=== PATIENT | male | born 1970 | race Caucasian/White ===

== ENCOUNTER 2023-07-04 15:09 | Emergency (ER) | payer SELFPAY ==
[2023-07-04 15:11] VITALS: BP 174/85; PULSE 75; RESP 16; TEMP 35.6; BMI 36.6
[2023-07-04 15:13] VITALS: BP 174/85; PULSE 75; RESP 16; TEMP 35.6
--- NOTE | 2023-07-04 15:48 | EX.ED.DYSGE1 ---
HPI History of Present Illness Chief Complaint: Lower Extremity Injury Informant: patient Narrative Narrative: Patient here with mild complaints. Reports swelling pelvic area for a while. He had right inguinal hernia repair 18 months ago outside facility. No urinary issues no bowel issues. Reports also chronic right hip pain. He seen Dr. Sj Yoon this past September reported recommend hip replacement however needed his glucose controlled. He is a diabetic. He does have a PCP however he states also trying to treat verbally. Has not seen recently his PCP. No vomiting. No polyuria or polydipsia. Denies any scrotal pain. [facility] Medical History Type 2 diabetes mellitus Home Medications etodolac 300 mg capsule 300 mg PO TIDCM ##30 06/06/14 [Rx Last Taken Unknown] glipizide 10 mg tablet, extended release 24 hr mg PO 07/04/23 [History Last Taken Unknown] pioglitazone 30 mg tablet mg 07/04/23 [History Last Taken Unknown] Allergy/AdvReac Type Severity Reaction Status Date / Time venom-honey bee AdvReac Swelling Verified 07/04/23 15:10 [bee venom (honey bee)] Social History Smoking Status: Unknown if ever smoked [facility] ED Constitutional Constitutional ED: Denies chills, fever(s) or sweats Eyes Eyes: Denies change in vision ENT ENT ED: Denies dysphagia or sore throat Cardiovascular Cardiovascular: Denies chest pain, leg edema, palpitations or racing heartbeat Respiratory/Chest Respiratory/Chest: Denies cough, dyspnea or dyspnea on exertion Gastrointestinal Gastrointestinal: Denies abdominal pain, diarrhea, nausea or vomiting Genitourinary Genitourinary ED: Denies dysuria, hematuria or urinary frequency Musculoskeletal Musculoskeletal: Reports other Details: Right hip pain ; Denies back pain, extremity pain or neck pain Integumentary Denies rash or wounds Neurologic Neurologic: Denies headache(s), paresthesias or weakness EXAM Physical Exam Const Vital Signs: 07/04/23 15:11 07/04/23 15:13 Temperature 96.1 F L 96.1 F L Temperature Source Temporal Temporal Pulse Rate 75 75 Respiratory Rate 16 16 Blood Pressure 174/85 H 174/85 H Blood Pressure Mean 114 114 Positive well nourished and well developed General Appearance ED: well developed and NAD HEENT Reports moist mucous membranes normocephalic and atraumatic Eyes PERRL, EOMs intact bilaterally and conjunctivae normal General Eye ED: Yes normal appearance of both eyes Neck no lymphadenopathy and supple General: Negative for tenderness Chest Wall Chest: Negative for tenderness Resp normal respiratory effort and normal air movement Effort and Inspection: symmetric chest movement; Negative for respiratory distress Cardio regular rate, regular rhythm and no murmurs Peripheral Pulses: pulses 2+ throughout GI normal to inspection, nondistended, normoactive bowel sounds and non-tender Palpation: Negative for guarding or rebound tenderness present Narrative: Increasing soft tissue structure of the pelvic region. There is no scrotal swelling. No inguinal hernia palpated. No scrotal tenderness. Back/Spine no CVA tenderness and no thoracic nor lumbar tenderness Extremity normal to inspection Extremity Narrative: Negative logroll of the lower extremities. No pain with hip flexion. No deformities. Neuro vas intact distally. General Extremety ED: Negative for edema or tenderness General Extremity: Negative for edema Neuro oriented x3 and no sensory deficits noted Sensorium / Orientation: awake and alert Skin no rashes or lesions noted and no wounds MDM MDM MDM Narrative Medical decision making narrative: Interventions / MDM: Differential diagnosis: Right hip arthritis, history of diabetes Diagnosis considered but do not suspect: No clinical hernia. My EKG interpretation: N/A Imaging independently reviewed and interpreted by myself: 3 view right hip and pelvis: Severe right hip arthrosis, no fracture. Also read by radiology. External documents reviewed: N/A Test considered but not ordered:N/A ED course: Nontoxic chronic history of right hip pain. No hernia palpated on exam. Discussion he wanted reevaluation today for his reason. Hip x-rays obtained for reevaluation. X-rays severe hip arthrosis on the right. Discussed with patient reported history from his orthopedic visit in September reporting needs good glucose control prior to surgery that was recommended. He states he has been trying herbal medications without success. Discussed need for close follow-up with his PCP to help with this and follow-up with his orthopedic afterwards for recommended surgery. He is able to ambulate. Discussed using Tylenol as needed for pain. All questions were answered. Re-evaluation: stable Disposition discussed with patient/family/significant other: Patient Case discussed with consulting clinician: N/A This note was generated with Dragon dictation software. It may contain incorrect words, spelling, and punctuation that were not noted in checking the note before signing. Radiography Diagnostic Testing: Clinical Impression(s) from Imaging Studies Hip/Pelvis X-Ray 07/04/23 15:50 IMPRESSION: No evidence of displaced pelvic or hip fracture. Severe right hip arthrosis. Electronically Signed: David Staples MD at 16:05 EDT Reading Location ID and State: [address] [place] [address] Tel , Service support , Discharge Plan Triage Chief Complaint: Lower Extremity Injury ED Provider: Esau Snell Dx/Rx/DC Orders Clinical Impression: Arthritis of right hip, History of diabetes mellitus Instructions: OA Hip Prescriptions: No Action etodolac 300 MG capsule 300 mg PO TIDCM Qty: 30 0RF Rx Instructions: with food glipizide 10 mg tablet extended release 24hr PO Patient Comments: TAKE 1 TABLET BY MOUTH ONCE DAILY IN THE EVENING pioglitazone 30 mg tablet Patient Comments: TAKE 1 TABLET BY MOUTH ONCE DAILY Primary Care Provider: Antonio Garcia Referrals: Sj Yoon MD [Med Staff - Active Staff] - 1-2 Weeks Antonio Garcia MD [Primary Care Provider] - 3-5 Days Activity Restrictions/Additional Instructions: Repeat x-ray today right hip severe arthrosis noted. Follow-up with your PCP discuss your blood glucose management as discussed with your orthopedist for control prior to recommended hip replacement surgery. Disposition Disposition: Home, Self Care Discharge Date/Time: 07/04/23 17:03
--- NOTE | 2023-07-04 15:50 | RAD_ITS ---
INDICATION: pain EXAMINATION/TECHNIQUE: X-RAY - XR Hip Unilateral with Pelvis when performed; 2-3 Views COMPARISON: No relevant prior comparison study available FINDINGS: PELVIC BONES: No displaced fracture, destructive or sclerotic lesions. Note that overlapping bowel shadows may however obscure fine detail. Sacroiliac joints are unremarkable. No widening of the pubic symphysis. 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 Small marginal osteophytes of the left hip joint with preservation of the hip joint space. No displaced fracture seen in this frontal view. SOFT TISSUES: No soft tissue swelling or gas. RAD/HIP, UNI W/ Pelvis 2-3 Views IMPRESSION: No evidence of displaced pelvic or hip fracture. Severe right hip arthrosis. Electronically Signed: David Staples MD at 16:05 EDT ,
== END 2023-07-04 17:03 | disposition home or self-care (01) ==
PROVIDERS: Emergency Provider Emergency Medicine; PCP Family Medicine; Visit Provider Emergency Medicine
DX: M16.11 Unilateral primary osteoarthritis, right hip (principal); E11.9 Type 2 diabetes mellitus without complications; G89.29 Other chronic pain; M25.551 Pain in right hip
CPT/HCPCS: 73502; 99283

== ENCOUNTER → 2023-07-25 | Outpatient (CLI) | payer SELFPAY ==
[2023-07-25 13:49] LABS: Hemoglobin A1c 10.6 % (3.8-5.6)
[2023-07-26 05:07] LABS: Fructosamine 418 umol/L (0-285)
== END | disposition home or self-care (01) ==
LOC: MTLAB 09:44
PROVIDERS: PCP Family Medicine; Referring Provider Orthopaedic Surgery; Visit Provider Orthopaedic Surgery
DX: E11.9 Type 2 diabetes mellitus without complications (principal)
CPT/HCPCS: 36415; 82985; 83036

== ENCOUNTER → 2024-05-29 | Outpatient (CLI) | payer MEDICAID, SELFPAY ==
--- NOTE | 2024-05-29 09:47 | CT_ITS ---
HISTORY: templating for right DARRYN. TECHNIQUE: Helically acquired images were obtained of the knees without contrast. 2-D reformats were performed by the technologist. A radiation dose optimization technique was used for this scan. 1160 images. COMPARISON: XI 07/04/2023. FINDINGS: BONES: No acute fracture identified. JOINT SPACES: Severe right hip joint space narrowing with subchondral cysts, osteophytes, and coxa magna. No dislocation. Mild degenerative changes of the left hepatic veins. SOFT TISSUES: No fluid collections. CT/Extremity Lower without Contra IMPRESSION: CT for right DARRYN templating. Electronically Signed: Felicitas Rocha MD at 10:24 EDT ,
== END | disposition home or self-care (01) ==
LOC: CT 09:46
PROVIDERS: PCP Family Medicine; Referring Provider Orthopaedic Surgery; Visit Provider Orthopaedic Surgery
DX: M16.11 Unilateral primary osteoarthritis, right hip (principal)
CPT/HCPCS: 73700

== ENCOUNTER 2024-06-08 13:00 | Outpatient (CLI) | payer MEDICAID, SELFPAY ==
--- NOTE | 2024-05-31 07:53 | EKG12_ITS ---
Test Reason : PRE OP Blood Pressure : / mmHG Vent. Rate : 062 BPM Atrial Rate : 062 BPM P-R Int : 162 ms QRS Dur : 086 ms QT Int : 392 ms P-R-T Axes : 037 059 057 degrees QTc Int : 397 ms Normal sinus rhythm Normal ECG Confirmed by MATT ARAUJO, LENNIE ([id number]), scientific editor USHA FAY ([id number]) on 05/31/2024 12:48:55 PM Referred By: Tom Dodson Confirmed By:LENNIE GUTIERREZ MD
[2024-05-31 08:44] LABS: Absolute Lymphocyte Count 1.81 X10^3/uL (0.83-4.51); Absolute Neutrophil Count 4.2 X10^3/uL (2.0-7.7); Basophil# 0.03 X10^3/uL; Basophil% 0.5 % (0-1); Eosinophil# 0.06 X10^3/uL; Eosinophils% 0.9 % (0-5); Hematocrit 40.3 % (40-54); Hemoglobin 13.5 g/dL (13.0-16.5); Lymphocyte # 1.81 X10^3/ul (0.83-4.51); Lymphocyte % 27.9 % (19-41); Mean Corp Hgb Conc 33.5 g/dL (32-36); Mean Corpuscular Hgb 30.3 pg (27.0-32.0); Mean Corpuscular Volume 90.6 fL (80-94); Mean Platelet Vol. 10.3 fl (6.2-12.0); Monocyte# 0.38 X10^3/uL; Monocyte% 5.9 % (0-10); NRBC Flagged by Analyzer 0 % (0-5); Neutrophil # 4.17 X10^3/uL (2.7-7.7); Neutrophil % 64.2 % (47-70); Platelet Count 256 K/mm3 (150-450); RBC Distribution Width CV 12.7 % (11.6-14.6); RBC Distribution Width SD 42.1 fl (35.1-43.9); Red Blood Count 4.45 M/mm3 (4.6-6.2); White Blood Count 6.5 K/mm3 (4.4-11.0)
[2024-05-31 08:53] LABS: International Normalized Ratio 1.2; Prothrombin Time (Protime)PT. 15.2 SECONDS (11.7-14.9)
[2024-05-31 08:55] LABS: Partial Thromboplast Time 26.7 Seconds (24.1-36.2)
[2024-05-31 09:07] LABS: Anion Gap 6 (5-15); BUN 16 mg/dL (7-18); Calcium,Total 9.5 mg/dL (8.5-10.1); Chloride 103 mmol/L (98-107); Creatinine, Serum 0.84 mg/dL (0.70-1.30); EST Glomerular Filtration Rate 101 mL/min (>60); Est Glom Filt Rate - Afr Amer 122 mL/min (>60); Glucose 263 mg/dL (74-106); Potassium 4.2 mmol/L (3.5-5.1); Sodium Level 137 mmol/L (136-145)
[2024-05-31 09:14] LABS: Hemoglobin A1c 7.1 % (3.8-5.6)
[2024-06-01 04:07] LABS: Fructosamine 326 umol/L (0-285)
[2024-06-08 06:00] VITALS: BP 162/79; PULSE 76; RESP 18; TEMP 36.2; O2SAT 98; BMI 36.8
[2024-06-08] MEDS: Magnesium 1 GM over 15 mins IV (06:00)
[2024-06-08] MEDS: Lactated Ringers 1,000 ML 999 ML IV (06:00)
[2024-06-08] MEDS: Insulin Lispro 100 UNIT/ML INSULN.PEN SC (06:17)
[2024-06-08] MEDS: Scopolamine 1mg/72hr Patch 1 PATCH TD (06:18)
[2024-06-08] MEDS: Acetaminophen 500 MG Tablet 1000 MG PO (06:20)
[2024-06-08] MEDS: Celecoxib 200 MG Capsule 400 MG PO (06:20)
[2024-06-08] MEDS: Gabapentin 600 MG Tablet PO (06:20)
[2024-06-08 07:29] LABS: Bedside Glucose 319 mg/dL (74-106)
== END 2024-06-08 23:00 | disposition home or self-care (01) ==
LOC: SDC 11-24 21:49
PROVIDERS: Anesthesiology; PCP Family Medicine; Referring Provider Orthopaedic Surgery; Visit Provider Orthopaedic Surgery
PROC: 8E0Y0CZ Robotic Assisted Procedure of Lower Extremity, Open Approach (ICD-10-PCS; CPT 27130; principal; 2024-06-08 07:00)
DX: Z01.818 Encounter for other preprocedural examination (principal)
CPT/HCPCS: 36415; 80048; 82962; 82985; 83036; 83735; 85025; 85610; 85730; 86850; 86900; 86901; 87081; 93005; J3475